=== PATIENT | male | born 1990 | race Caucasian/White ===

== ENCOUNTER 2019-01-09 19:17 | Emergency (ER) | payer BC, OTHER ==
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
[2019-01-09] MEDS ORDERED: Lidocaine 1% 10 ML MDV INJECT ONE (19:51)
== END 2019-01-09 20:15 | disposition home or self-care (01) ==
LOC: JD.ED 19:17
DX: S01.511A Laceration without foreign body of lip, initial encounter (principal); W50.0XXA Accidental hit or strike by another person, initial encounter
CPT/HCPCS: 12011; 99282; J2001

== ENCOUNTER 2019-11-05 02:17 | Emergency (ER) | payer BC ==
[2019-11-05] MEDS ORDERED: Silver Sulfadiazine 1% Crm 50 GM Tube TOP ONE (02:46)
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
[2019-11-05] MEDS ORDERED: Acetaminophen/HYDROcodone 325-5 MG Tab PO ONE (02:47)
== END 2019-11-05 03:05 | disposition home or self-care (01) ==
LOC: JD.ED 02:17
DX: T23.232A Burn of second degree of multiple left fingers (nail), not including thumb, initial encounter (principal); X12.XXXA Contact with other hot fluids, initial encounter
CPT/HCPCS: 16020; 99283; A9270